=== PATIENT | female | born 1975 | race Caucasian/White ===

== ENCOUNTER 2017-01-05 17:42 | Emergency (ER) | payer BC ==
[2017-01-05] MEDS ORDERED: KETOROLAC TROMETHAMINE 60 MG/2 ML VIAL IM ONE ×2 (18:10→18:11)
--- NOTE | 2017-01-05 18:12 | ERNOTE ---
Lower Extremity HPI - General Lower Extremities Pain: ankle: right Time Seen by Provider: 01/05/17 18:09 Source: patient Exam Limitations: no limitations - Immun/Allergies/Home Medications Immunizations: IMMUNIZATION HX Immunizations Up to Date Yes History of Influenza Vaccine Yes Hx Pneumococcal Vaccination Yes Allergies/Adverse Reactions: Allergies Allergy/AdvReac Type Severity Reaction Status Date / Time No Known Allergies Allergy Verified 01/05/17 17:53 Home Medications: HOME MEDICATIONS oxyCODONE HCL/ACETAMINOPHEN [Percocet 5-325 mg Tablet] 1 each PO Q4H PRN #20 tablet 01/05/17 [Last Taken Unknown] - History of Present Illness Narrative: Patient was at a baseball game, as she was going for a base she dorsiflexed her right foot, felt a pop in her heel and has had pain in the heel ever since. She did not fall, denies any other injuries, did not take any medications yet. Date (Duration): 01/05/17 Time (Timing): 16:00 Occurred: this afternoon Location of Incident: [place] Method of Injury: Reports: sports injury Loss of Consciousness: Reports: no loss of consciousness Modifying Factors - (Worsens): Reports: movement Other Injuries: Reports: none Subsequent Symptoms: Denies: sensory loss, numbness, motor loss Review of Systems - Review of Systems Constitutional: Absent: recent illness, fever ENT: Absent: nose congestion, nasal drainage Respiratory: Absent: shortness of breath, cough Cardiology: Absent: chest pain Gastrointestinal/Abdominal: Absent: nausea, vomiting, abdominal pain Genitourinary: Present: no symptoms reported Musculoskeletal: Present: See HPI Skin: Absent: rash Neurological: Absent: weakness, numbness Hematologic/Lymphatic: Absent: easy bruising Psych: Present: no symptoms reported - Patient's Past Medical History Patient History - Medical: Depression Patient History - Cardiac/Respiratory: No pertinent hx Patient History - Cancer: No Hx of Cancer Patient History - Surgical Procedures: D & C, Tubal Ligation, Other Patient History - Other: None LMP (females 10-50): last week - Social History Living Situations: home Psych History: Hx of Depression Smoking Status: Never smoker Alcohol Use: none Drug Use: none - Immunizations Immunizations Up to Date: Yes Hx Pneumococcal Vaccination: Yes History of Influenza Vaccine: Yes Physical Exam - Physical Exam General Appearance: Present: wd/wn, alert, no apparent distress, obese Head Exam: Present: normal inspection, no evidence of injury Respiratory: Present: no respiratory distress, normal breath sounds, no accessory muscle use, lungs clear Cardiovascular/Chest: Present: regular rate, rhythm, no murmur Peripheral Pulses: N=norm/S=strong/W=weak/B=bound/A=absent: Dorsalis-pedis (R): Normal, Dorsalis-pedis (L): Normal Extremity Exam: Present: normal inspection, other - left inking machine tender over heel and achilles tendon, tendon palpable, decreased foot flexion on calve squeeze, decreased strength with plantar flexion, no other tenderness, no echymosis Neurological Exam: Present: alert, oriented, normal mood/affect, no motor/ sensory deficits Skin Exam: Present: normal color, warm/dry ED Progress - Vital Signs Patient's Vital Signs:: I have reviewed the patient's vital signs. Vital Signs: Vital Signs 01/05/17 17:48 Temperature 36.6 C Pulse Rate 107 H Respiratory 16 Rate Blood Pressure 143/81 O2 Sat by Pulse 98 Oximetry - X-Ray X-Ray #1 X-Ray: ankle - no bony injury Interpretation: Reviewed by me - Progress/Reassessment Chief Complaint: Foot Injury/Pain Progress Note-Subjective: 01/05/17 18:52 discussed with shelton Rivers to give patient walker boot, follow up on Sunday 01/07 pain better after toradol, discussed diagnosis and plan with patient Departure Clinical Impression: Partial tear of right Achilles tendon Qualifiers: Encounter type: initial encounter Qualified Code(s): S86.011A - Strain of right Achilles tendon, initial encounter - Departure Disposition: Home self-care Condition: Good Instructions: Achilles Tendon Rupture With Phase I Rehab-Sports[facility] Additional Instructions: call the orthopedic clinic on Saturday for a follow up appointment take over the counter ibuprofen (200mg) four tablets three times a day as needed for pain Referrals: Shon Diaz PA [[facility]] - Prescriptions: oxyCODONE HCL/ACETAMINOPHEN [Percocet 5-325 mg Tablet] 1 each PO Q4H PRN #20 tablet PRN Reason: Pain
[2017-01-05] MEDS ORDERED: oxyCODONE HCL/ACETAMINOPHEN 1 TAB TABLET PO ONE (19:02)
[2017-01-05] MEDS ORDERED: oxyCODONE HCL/ACETAMINOPHEN 1 TAB TABLET ONE (19:04)
[2017-01-05 19:10] VITALS: BP 131/76
== END 2017-01-05 19:05 | disposition home or self-care (01) ==
LOC: ER 17:42
PROC: 2W3QX1Z Immobilization of Right Lower Leg using Splint (ICD-10-PCS; principal; 2017-01-05)
DX: S86.011A Strain of right Achilles tendon, initial encounter (principal); Y93.64 Activity, baseball; Y92.830 Public park as the place of occurrence of the external cause